=== PATIENT | male | born 1995 | race Caucasian/White ===

== ENCOUNTER 2017-04-12 11:48 | Inpatient (IN) | payer BC ==
--- NOTE | 2017-04-12 12:03 | CPEKG ---
Heart Rate: 154 RR Interval: 390 P-R Interval: 104 QRSD Interval: 84 QT Interval: 340 QTC Interval: 544 P [place]: 0 QRS [place]: 83 T Wave [place]: 41 EKG Severity - ABNORMAL ECG - EKG Impression: SINUS TACHYCARDIA EKG Impression: PROBABLE LEFT ATRIAL ABNORMALITY EKG Impression: LOW VOLTAGE IN FRONTAL LEADS EKG Impression: PROLONGED QT INTERVAL Electronically Signed By: Yung Hunt 12-Apr-2017 13:15:45
--- NOTE | 2017-04-12 13:01 | EDPHY ---
H & P Stated Complaint: ingestion of unknown substance Source: Patient Exam Limitations: No limitations - Personal History Current Tetanus/Diphtheria Vaccine: Unsure Current Tetanus Diphtheria and Acellular Pertussis (TDAP): Unsure - Medical/Surgical History Other PMH: unknown - Family History Significant Family History: No pertinent family hx - Social History Smoking Status: Never smoked Time Seen by Provider: 04/12/17 12:27 HPI/ROS: CHIEF COMPLAINT: Altered mental status HISTORY OF PRESENT ILLNESS: The patient was brought into the ED with acute confusion and altered mental status. Paramedics reported that they were suspicious the patient may have ingested hallucinogen. The patient was noted to have a normal blood glucose prior to arrival. In the ED, the patient is quite confused. The patient is quite confused and tangential. He is unable to provide much meaningful history. We were able to reach the patient's mother on the telephone. She reports he has a history of bipolar mood disorder and is likely been off his medications. She is uncertain of the last antipsychotic medication he had been on. She knows that he had been prescribed clonidine. REVIEW OF SYSTEMS: A comprehensive 10 point review of systems is otherwise negative aside from elements mentioned in the history of present illness. (Yung Hunt) - Physical Exam Exam: General Appearance: Alert, no distress, appears confused Eyes: Pupils equal and round no pallor or injection ENT, Mouth: Mucous membranes moist Respiratory: There are no retractions, lungs are clear to auscultation Cardiovascular: Regular rate and rhythm Gastrointestinal: Abdomen is soft and nontender, no masses, bowel sounds normal Neurological: A&O, normal motor function, normal sensory exam, normal cranial nerves Skin: Warm and dry, no rashes Musculoskeletal: Neck is supple nontender Extremities: symmetrical, full range of motion Psychiatric: Tangential, bizarre behavior, disoriented (Yung Hunt) Constitutional: Initial Vital Signs Temperature (C) 36.9 C 04/12/17 12:09 Heart Rate 150 H 04/12/17 12:09 Respiratory Rate 20 04/12/17 12:09 Blood Pressure 160/104 H 04/12/17 12:09 O2 Sat (%) 96 04/12/17 12:09 O2 Delivery Mode Room Air Allergies/Adverse Reactions: Penicillins Allergy (Verified 04/12/17 12:37) Home Medications: Medication Instructions Recorded Risperidone 1 tab PO DAILY PRN 04/12/17 traZODone [traZODONE 100MG (*)] 100 mg PO HS PRN 04/12/17 Medical Decision Making - Diagnostics EKG Interpretation: EKG: Complete interpretation has been separately recorded in the [facility] archive. Summary impression: Sinus tachycardia, rate 154 (Yung Hunt) ED Course/Re-evaluation: The patient presents to the ED with abnormal behavior. After reaching his mother we are able to understand that the patient has a history of bipolar mood disorder. The patient's urine toxicology is negative. The patient was given 5 mg of oral Zyprexa in the emergency department. The patient will be placed on an M1 psychiatric hold secondary to grave disability. He has been medically cleared for psychiatric evaluation. The patient will be turned over to Dr. Afshin Brown at shift change pending psychiatric evaluation. (Yung Hunt) Differential Diagnosis: Differential diagnosis considered includes drug intoxication, psychosis, bipolar mood disorder, ingestion, toxidrome (Yung Hunt) Other Provider: Care the patient is assumed from Dr. Hunt at 2:45 p.m.. History is patient has bipolar disorder and is currently manic and psychotic. Plan for psychiatric evaluation. He is on a hold. Vital signs have tachycardia noted but he had an EKG performed and it is sinus rhythm. Likely due to his agitation. White blood cell count also noted as elevated but patient does not have other evidence of acute bacterial infection. 175: patient examined. there is a long pause between asking question and reply. no meningeal signs. 1955: The patient will be transferred to [address] for inpatient psychiatric hospital bed not available at this facility, in stable condition; accepting physician is Dr. Blue. (Afshin Brown) - Data Points Laboratory Results: Laboratory Results 04/12/17 12:30 04/12/17 12:30 04/12/17 04/12/17 04/12/17 12:30 12:30 12:30 WBC 17.79 10^3/uL H 10^3/uL (3.80-9.50) RBC 6.31 10^6/uL 10^6/uL (4.40-6.38) Hgb 18.2 g/dL H g/dL (13.7-17.5) Hct 52.4 % H % (40.0-51.0) MCV 83.0 fL fL (81.5-99.8) MCH 28.8 pg pg (27.9-34.1) MCHC 34.7 g/dL g/dL (32.4-36.7) RDW 13.2 % % (11.5-15.2) Plt Count 324 10^3/uL 10^3/uL (150-400) MPV 10.9 fL fL (8.7-11.7) Neut % (Auto) 77.4 % H % (39.3-74.2) Lymph % (Auto) 14.4 % L % (15.0-45.0) Charles % (Auto) 6.5 % % (4.5-13.0) Eos % (Auto) 0.2 % L % (0.6-7.6) Baso % (Auto) 0.8 % % (0.3-1.7) Nucleat RBC Rel Count 0.0 % % (0.0-0.2) Absolute Neuts (auto) 13.79 10^3/uL H 10^3/uL (1.70-6.50) Absolute Lymphs (auto) 2.56 10^3/uL 10^3/uL (1.00-3.00) Absolute Monos (auto) 1.15 10^3/uL H 10^3/uL (0.30-0.80) Absolute Eos (auto) 0.03 10^3/uL 10^3/uL (0.03-0.40) Absolute Basos (auto) 0.14 10^3/uL H 10^3/uL (0.02-0.10) Absolute Nucleated RBC 0.00 10^3/uL 10^3/uL (0-0.01) Immature Gran % 0.7 % % (0.0-1.1) Immature Gran # 0.12 10^3/uL H 10^3/uL (0.00-0.10) Sodium 139 mEq/L mEq/L (135-145) Potassium 3.3 mEq/L L mEq/L (3.5-5.2) Chloride 95 mEq/L L mEq/L (97-110) Carbon Dioxide 16 mEq/l L mEq/l (22-31) Anion Gap 28 mEq/L H mEq/L (8-16) BUN 3 mg/dL L mg/dL (7-23) Creatinine 1.3 mg/dL mg/dL (0.7-1.3) Estimated GFR > 60 Glucose 199 mg/dL H mg/dL (70-100) Calcium 9.9 mg/dL mg/dL (8.5-10.4) Urine Opiates Screen NEGATIVE (NEGATIVE) Urine Barbiturates NEGATIVE (NEGATIVE) Ur Phencyclidine Scrn NEGATIVE (NEGATIVE) Ur Amphetamine Screen NEGATIVE (NEGATIVE) U Benzodiazepines Scrn NEGATIVE (NEGATIVE) Urine Cocaine Screen NEGATIVE (NEGATIVE) U Marijuana (THC) Screen NON-NEGATIVE H (NEGATIVE) Ethyl Alcohol < 10 mg/dL mg/dL (0-10) Medications Given: Discontinued Medications Sodium Chloride (Ns) 1,000 mls @ 0 mls/hr IV EDNOW ONE; Wide Open PRN Reason: Protocol Stop: 04/12/17 14:09 Last Admin: 04/12/17 14:24 Dose: 1,000 mls Sodium Chloride (Ns) 1,000 mls @ 0 mls/hr IV EDNOW ONE; Wide Open PRN Reason: Protocol Stop: 04/12/17 14:09 Last Admin: 04/12/17 14:25 Dose: 1,000 mls Olanzapine (Zyprexa Zydis) 5 mg PO EDNOW ONE Stop: 04/12/17 14:09 Last Admin: 04/12/17 14:24 Dose: 5 mg Departure - Departure Disposition: [facility] IP Clinical Impression: Bipolar disorder Qualifiers: Active/Remission status: currently active Current bipolar episode type: manic Current episode severity: severe Psychotic features: with psychotic features Qualified Code(s): F31.2 - Bipolar disorder, current episode manic severe with psychotic features Condition: Fair Instructions: Bipolar Disorder (ED) Referrals: NONE *PRIMARY CARE P,. [Primary Care Provider] - As per Instructions
[2017-04-12 13:05] LABS: PLATELET COUNT 324 10^3/uL (150-400)
[2017-04-12] MEDS ORDERED: OLANZapine DISINTEGR 5 MG TAB PO ONE (14:08)
[2017-04-12] MEDS ORDERED: NS 1,000 ML IV ONE ×2 (14:08)
[2017-04-12] MEDS ORDERED: MAGNESIUM HYDROXIDE 30 ML UDCUP PO PRN (21:55)
[2017-04-12] MEDS ORDERED: ACETAMINOPHEN 325 MG TAB PO PRN (21:55)
[2017-04-12] MEDS ORDERED: MAG HYDROX/AL HYDROX/SIMETH 30 ML UDCUP PO PRN (21:55)
[2017-04-12] MEDS ORDERED: NICOTINE POLACRILEX 2 MG GUM B PRN (21:55)
[2017-04-12] MEDS ORDERED: LORazepam 1 MG TAB PO PRN (21:56)
[2017-04-12] MEDS ORDERED: OLANZapine 5 MG TAB PO PRN (21:57)
[2017-04-12] MEDS: OLANZapine 10 MG TAB PO SCH (22:11)
--- NOTE | 2017-04-13 13:19 | BAPA ---
[f rep st] ADMISSION PSYCHIATRIC ASSESSMENT IDENTIFICATION: This is a 22-year-old single white male who lives with his girlfriend in an apartment in [place]. He is currently unemployed. CHIEF COMPLAINT: "I was walking in the park and I was walking in the stream." HISTORY OF PRESENT ILLNESS: Patient is a poor historian. Basically, he reports that he was walking through a park with minimal clothing, and was walking through a stream, and someone called the police or the paramedics, and he was taken to the emergency department. Per the emergency department report, the patient was tangential, disorganized, reported not sleeping, and having paranoia. The patient was given 5 mg of Zyprexa in the emergency room along with 2 L of IV fluids, and then transferred to the inpatient unit on an M1 hold. Patient reports that he has been diagnosed with bipolar disorder several times in the past. He reports past psychiatric hospitalizations for this condition. He reports prior to admission, he had not been taking any psychiatric medications. He reported erratic sleep, sometimes not sleeping at all, sometimes only sleeping a few hours, with racing thoughts. He reported brief mood swings, brief depression. He reports in the past month having brief thoughts about being , but denies suicidal thoughts or self-injurious behavior in the past month. He denies auditory hallucinations. He denies paranoia. He reports anxiety about "something bad is going to happen," along with irritability. He reports using cannabis up until about a week ago. He denies alcohol or other drug abuse. He denies any recent violent thoughts or violent behaviors. He denies any recent change in his physical health. The patient reports benefit from taking 10 mg of Zyprexa last night here on the inpatient unit. He reports he slept well, feels more calm, has reduced racing thoughts, and feels like he can think more clearly. PAST PSYCHIATRIC HISTORY: The patient denies any history of violence toward others or any arrests. He does report a psychiatric [facility]; per notes patient was diagnosed with Bipolar Disorder and Panic Disorder and prescribed Trileptal and PRN Klonopin. Prior to the 2014 hospitalization, he was having suicidal thoughts, and superficially cut on his left wrist and had thoughts of hanging himself. The patient also reports he was hospitalized at [facility] in [place] in [place] of 2017, diagnosed with Bipolar disorder with psychotic features and being prescribed Invega Sustenna injections. He reports at that time he was having manic symptoms, along with grandiose delusions that he was connected to the president and denominational figures. The patient denies any recurrent substance abuse, other than using daily cannabis in the past year. He reports he has not used cannabis in the past week. He also reports using LSD about 5 times in his early 20s, after which he was referred to [facility] residential substance use treatment program in [place]. Denies past addiction to alcohol, sedatives, or opioids. ALLERGIES: He has a listed allergy to penicillin. PAST MEDICAL HISTORY: He denies any chronic medical problems or any traumatic brain injuries or concussions or any seizures. He denies any surgery on his body or any recent change in his physical health. SOCIAL HISTORY: He reports he was raised by his parents. He reports his parents when he was 7, after which he was raised by his mother. He denies any physical or sexual abuse during his childhood. He graduated high school, did 1 semester of college. He is currently unemployed, lives with his girlfriend. He has never been , has no children. Never been in . His mother, in [place], is a support and supports him financially for his condominium FAMILY HISTORY: He reports his father had either schizophrenia or a mood disorder. He has 2 uncles with severe mental illness. He has a relative with thyroid disease. VITAL SIGNS: He weighs 104 kg. He is 175 cm tall. His BMI is 34. His vital signs this morning are 142/85, heart rate 90, respiratory rate 14, pulse ox 95% on room air, temperature afebrile. LABS: In the emergency room, he had a white blood cell count 7.7, hemoglobin 18.2, platelet count 324. Sodium 139, potassium 3.3, creatinine 1.3, glucose 199. His glucometer today was 75. The glucose of 199 was in the emergency room after he received IV fluids, possibly IV dextrose by paramedics. Calcium 9.9. TSH is pending. Hemoglobin A1c is pending. AST 33, ALT 27, triglycerides 178, HDL 38, LDL is 58. His urine drug screen is positive for cannabis. Alcohol level is negative. Other drugs of abuse were negative. MENTAL STATUS EXAMINATION: He is an alert, white male with glasses. He is ambulatory without focal weakness. His speech is regular rate and rhythm. His thoughts are briefly organized with minimal information. He describes his mood is "okay." His affect is restricted. He denies thoughts to hurt himself or others. He denies paranoia or hallucinations. His insight appears to be limited. His judgment appears to be questionable. He has a poverty of information with his speech. ASSESSMENT: Bipolar disorder type 1, most recent episode, most recent episode manic with mixed/psychotic features. Cannabis use disorder, severe. Rule out schizoaffective disorder. Rule out cannabis-related psychotic disorder. The overall assessment is the patient is currently on an M1 hold for grave disability after acting disorganized and paranoid and wandering through a stream and a park in a bizarre manner. The patient currently appears calm and appropriate, but has a poverty of information in thought content with limited insights. The patient was paranoid and disorganized in the ER. The patient was recently hospitalized at [place] in October 2016, and started on Invega Sustenna injections but did not follow through with outpatient mental health treatment. It is unclear if the patient has chronic psychotic symptoms or not. The patient does report sleeping well last night with Zyprexa 10 mg at night, and having reduction in racing thoughts and improved thought organization today. PLAN: 1. The patient is on M1 hold. Will follow up short-term certification for grave disability, as it appears the patient is unable to care for himself outside the hospital. If the patient is compliant with medication, calm, sleeping well, and having consistently-improved thought organization, will convert to voluntary status. 2. We will continue olanzapine 10 mg by mouth at bedtime. Discussed that this medication can be used for either bipolar disorder or schizophrenia. Discussed the risks of sedation, weight gain, elevated cholesterol, hyperlipidemia, metabolic syndrome, and tardive dyskinesia. 3. The patient had a low potassium in the emergency room. We will start potassium 20 mEq p.o. q.a.m. 4. The patient has chronic nicotine use disorder. We will start nicotine patch 14 mcg transdermal daily. 5. Discussed the dangers of cannabis, including paranoia, hallucinations, disorganization, psychosis. 6. The patient's reproductive healthcare assistant on the unit contacted the patient's mother regarding the patient's hospitalization. The patient did sign a release of information. [facility] We will ask her to evaluate the patient to clarify if this is near his baseline. 7. We will check vital signs twice a day, as the patient has borderline hypertension on the unit. The patient will get a baseline physical exam by the hospitalist later today. 8. Will consider rechecking an EKG prior to discharge, as he had tachycardia with a prolonged QTc interval in the ER. /[id number]/MODL MTDD
[2017-04-13] MEDS: NICOTINE 14 MG/24 HR PATCH TD SCH (13:26)
[2017-04-13] MEDS: POTASSIUM CL 20 MEQ TAB PO SCH (13:27)
[2017-04-13] MEDS ORDERED: FLU VACC QS 2017-18 (3YR+)/PF 0.5 ML SYR (FLUARIX QUAD) IM ONE ×3 (13:39→18:30)
[2017-04-13] MEDS ORDERED: PNEUMOCOCCAL 0.5ML VACCINE VIAL ONE (13:40)
[2017-04-13] MEDS ORDERED: PNEUMOCOCCAL 0.5ML VACCINE VIAL IM ONE ×2 (15:00→18:30)
--- NOTE | 2017-04-13 16:45 | CPEKG ---
Heart Rate: 71 RR Interval: 845 P-R Interval: 152 QRSD Interval: 88 QT Interval: 384 QTC Interval: 418 P [place]: 11 QRS [place]: 73 T Wave [place]: 33 EKG Severity - NORMAL ECG - EKG Impression: SINUS RHYTHM Electronically Signed By: Devon Montalvo 15-Apr-2017 08:00:28
[2017-04-13] MEDS: OLANZapine 10 MG TAB PO SCH (20:42)
--- NOTE | 2017-04-13 21:15 | BCON ---
[f rep st] BEHAVIORAL HEALTH CONSULTATION DATE OF CONSULTATION: 04/13/2017 REFERRING PHYSICIAN: William Blue MD REASON FOR REFERRAL: Medical clearance for inpatient behavioral health stay. HISTORY OF PRESENT ILLNESS: This patient was brought to the emergency department by paramedics yesterday. He had confusion and altered mental status. He was very tachycardic at the time. He was evaluated by the mental health team and admitted for further psychiatric care. He is currently without any acute complaints. 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 PAST SURGICAL HISTORY: He has had wisdom teeth extraction and labrum reconstruction. MEDICATIONS: He was on no medications prior to admission, but had previously been on risperidone. SOCIAL HISTORY: He lives alone. He has a girlfriend. He reports that he has not had a job. He is a tobacco smoker and a regular cannabis user. FAMILY HISTORY: He reports his mother has emphysema and his father had mental illness. REVIEW OF SYSTEMS: He denies pain, cough, dyspnea, chest pain, palpitations, nausea, vomiting, constipation, or diarrhea. He reports he had had excessive caffeine ingestion on the day that he was brought to the hospital and had had nausea and vomiting. Otherwise, a 10-point review of systems is negative. PHYSICAL EXAMINATION: VITAL SIGNS: Blood pressure is 142/85, heart rate 90, respiratory rate 14, and oxygen saturation 95% on room air. Temperature is 36.8 degrees centigrade. His weight is 104.3 kg for a body mass index of 34. GENERAL: This is an overweight male, cooperative, and in no acute distress HEENT: Extraocular movements are intact. Pupils are equal, round, and reactive to light. Mucous membranes are moist. Dentition is in good condition. NECK: Supple. HEART: There is a regular rate and rhythm with no murmurs, rubs, or gallops. LUNGS: Upper respiratory wheezes, audible in all lung jackson, especially on expiration , and are otherwise clear to auscultation bilaterally. ABDOMEN: Benign. EXTREMITIES: There is no cyanosis, clubbing, or edema. NEUROLOGIC: He is alert and oriented x3. Cranial nerves 2-12 are grossly intact. There is no focal weakness. Sensation is intact to light touch,and there is no tremor. LABORATORY STUDIES: From the emergency department: Hematology revealed a markedly elevated white blood cell count at 17.79. Additionally, he appeared to have hemoconcentration versus polycythemia with a hemoglobin slightly elevated at 18.2 and hematocrit slightly elevated at 52.4. Platelet count was normal. There was no left shift regarding leukocytosis. Serum chemistry revealed a low potassium at 3.3, a low chloride at 95, a low carbon dioxide at 28, a low BUN at 3. He had a low carbon dioxide at 16. He had an elevated anion gap at 28. Glucose was high at 199. Subsequently, glucose was 75. Hemoglobin A1c was 5.4. Liver functions were within normal limits. A lipid panel was done. He had elevated triglycerides at 178, but a low total cholesterol at 131; a low LDL at 58, and a low HDL at 38. TSH was normal at 0.67. Toxicology screen in the serum was negative for ethyl alcohol and in the urine was non-negative for marijuana, but otherwise negative for substances of abuse. ASSESSMENT AND RECOMMENDATIONS: 1. Bipolar disorder pending further evaluation and management per Psychiatry and the mental health team. 2. Tobacco dependence syndrome. Advised smoking cessation. 3. Obesity. Consider avoiding medications that could cause further weight gain ; however, his psychosocial stability is his first priority at present. 4. Hypokalemia and anion gap. Query whether these could be results of caffeine toxicity. Tachycardia would be consistent with caffeine toxicity. Hypothyroidism has been ruled out with normal TSH. Unclear etiology of the anion gap. If he had caffeine toxicity, rhabdomyolysis is a possibility. We will repeat his BMP in the morning along with a CK. 5. Leukocytosis. He had no obvious signs or symptoms of infection. However, while I am ordering blood draws, I will also order a repeat CBC to evaluate to whether the leukocytosis has continued or if it was part of an acute stress reaction. 6. Tachycardia and prolonged QT interval. I agree with Psychiatry's plan to repeat an EKG, to see if the QT interval appears prolonged when he has a normal heart rate, I have ordered a repeat EKG. 7. I see no medical contraindications to this patient's continued stay on the inpatient behavioral health unit or to any psychiatric medications or procedures. Thank you very much for including me in the care of this patient, and please do not hesitate to contact me or the hospitalist service should there be need for further medical evaluation. /[id number]/MODL MTDD
[2017-04-14] MEDS ORDERED: QUEtiapine FUMARATE 50 MG TAB PO SCH (09:15)
--- NOTE | 2017-04-14 09:22 | SOAPPROG ---
SOAP Progress Note Assessment/Plan: Assessment: Schizoaffective Disorder bipolar type Cannabis Use Disorder severe Needle/blood phobia Overweight, mild lipid elevation Patient appears anxious and mildly disorganized. Patient appears to have residual/negative symptoms of psychotic illness (impaired abstract thinking, apathy). Patient has a history of bipolar mood episodes and recurrent non-compliance with outpatient medication/treatment Plan: Short Term Certification Discussed risk of metabolic syndrome and tardive dyskinesia with antipsychotic medications Discontinue Zyprexa Start Seroquel 50mg PO QAM and 100mg PO QHS BMP, CK, CBC pending Ativan 1mg PO [id number] PRN anxiety or one hour prior to blood draw Monitor behavior, thought organization, mood stability Reviewed dangers of cannabis causing anxiety and psychosis Coordinate discharge planning with mother 04/14/17 09:26 Subjective: CC: "Feeling alright" Patient unable to explain why he is in the hospital. Later reports paranoia about 'everyone and everything' but unable to explain further. Reports prior to admit thinking about 'because a lot of regret' but denies specific suicidal plan or furtherance toward self harm prior to admission. Reports racing thoughts, yelling, agitation, insomnia prior to admission. Reports after inpatient in 2014 not taking Trileptal so unsure if that was a helpful medication. Reports in [place] he was initially started on Abilify then later Invega and Invega Sustenna injections; reports in past taking varying amounts of Risperdal without clear benefit. Reports he is unsure what his goals are or where he would go after discharge, unable to explain any long-term goals. Reports anxiety with a history of fainting with blood draws. Objective: Vital Signs Temp Pulse Resp BP Pulse Ox 36.6 C 112 H 14 137/88 H 96 04/14/17 06:00 04/14/17 06:00 04/14/17 06:00 04/14/17 06:00 04/14/17 06:00 Alert WM with glasses, overweight. Tapping foot with restlessness at times. Speech RRR. Thoughts tangential at times with occasional loose associations. Illogical at times with poverty of information. Denies AH. Endorses paranoia. Mood 'alright' affect anxious, odd. Denies suicidal thoughts or violent thoughts this AM. Insight limited/poor. Staff report patient anxious and irritable with blood draws, unable to obtain. Calm and cooperative but disorganized behavior and speech at times on unit. Slept overnight. Hospitalist rechecked EKG (WNL, HR 71, QTc 418msec); follow up BMP, CK, CBC ordered - Time Spent With Patient Time Spent With Patient: 30 minutes - Pending Discharge Pending Discharge Within 24 Hours: No Pending Discharge Within 48 Hours: No ICD10 Worksheet Patient Problems: Problems Problem Status Onset Bipolar disorder Acute Cannabis use disorder, severe, dependence Acute
[2017-04-14] MEDS: POTASSIUM CL 20 MEQ TAB PO SCH (09:48)
[2017-04-14] MEDS: NICOTINE 14 MG/24 HR PATCH TD SCH (09:48)
[2017-04-14 13:18] LABS: PLATELET COUNT 249 10^3/uL (150-400)
[2017-04-14 13:44] LABS: CREATINE KINASE 109 IU/L (0-224)
[2017-04-14] MEDS ORDERED: RISPERIDONE 1 MG ODT TAB SL PRN (14:04)
[2017-04-14] MEDS ORDERED: LORazepam 1 MG TAB PO PRN (14:04)
[2017-04-14] MEDS ORDERED: hydrOXYzine HCL 25 MG TAB PO PRN (14:04)
--- NOTE | 2017-04-14 14:50 | SOAPPROG ---
SOAP Progress Note Assessment/Plan: Assessment: Hypokalemia and anion gap have resolved. Creatinine kinase is normal. Discontinued potassium supplement. EKG reviewed, NSR, no prolonged QT. Prior finding was an artifact of tachycardia. 04/14/17 14:48 Subjective: Chart reviewed re lab and EKG results. Objective: Vital Signs Temp Pulse Resp BP Pulse Ox 36.6 C 112 H 14 137/88 H 96 04/14/17 06:00 04/14/17 06:00 04/14/17 06:00 04/14/17 06:00 04/14/17 06:00 Laboratory Results 04/14/17 11:15 04/14/17 11:15 ICD10 Worksheet Patient Problems: Problems Problem Status Onset Bipolar disorder Acute Cannabis use disorder, severe, dependence Acute Schizoaffective disorder Acute
[2017-04-14] MEDS: RISPERIDONE 2 MG ODT TAB SL SCH (20:14)
[2017-04-14] MEDS ORDERED: QUEtiapine FUMARATE 100 MG TAB PO SCH (21:00)
[2017-04-15] MEDS: NICOTINE 14 MG/24 HR PATCH TD SCH (08:34)
--- NOTE | 2017-04-15 10:40 | SOAPPROG ---
SOAP Progress Note Assessment/Plan: Assessment: Schizoaffective Disorder bipolar type Cannabis Use Disorder severe Needle/blood phobia Overweight, mild lipid elevation Borderline dehydration Patient admitted involuntarily for paranoia and disorganized behavior, including walking through [place] in freezing temperatures. Patient appears anxious and mildly disorganized and to have residual/negative symptoms of psychotic illness (impaired abstract thinking, apathy). Patient has a history of bipolar mood episodes and recurrent non-compliance with outpatient medication/treatment. Plan: Short Term Certification Continue Risperdal 2mg PO QHS Plan Risperdal Consta if tolerating Risperdal over next 2 days Monitor I/O, push PO fluids Discussed [facility]; coordinate discharge planning with mother in [place] Monitor behavior, thought organization, mood/anxiety Discussed low fat diet, exercise 04/15/17 10:43 Subjective: CC: "Just thinking about the past" Patient reports he is unsure if he will move to [place] or just go there for a few weeks and return to [place]. Unable to explain goals for the future. Denies paranoia or AH. Reports stable mood but having anxiety for unknown reasons. Reports difficulty keeping track of schedule on unit, unable to explain support system in [place] [facility]. Unable to explain non-compliance with medication and outpatient treatment between hospitalizations. Objective: Vital Signs Temp Pulse Resp BP Pulse Ox 36.6 C 108 H 15 138/89 H 93 04/15/17 08:00 04/15/17 08:00 04/15/17 08:00 04/15/17 08:00 04/15/17 08:00 Laboratory Results 04/14/17 11:15 04/14/17 11:15 04/14/17 04/15/17 04/16/17 05:59 05:59 05:59 Intake Total 750 Balance 750 Alert WM with glasses. Appears anxious and preoccupied at times. Speech RRR. Thoughts briefly organized, occasional loose association, with limited information. Denies SI or HI or AH or paranoia. Insight limited. Judgment questionable. Staff report patient cooperative with medication, slept 8 hours, attending groups, appearing preoccupied with disorganized statements at times. - Time Spent With Patient Time Spent With Patient: 30 minutes - Pending Discharge Pending Discharge Within 24 Hours: No Pending Discharge Within 48 Hours: No ICD10 Worksheet Patient Problems: Problems Problem Status Onset Bipolar disorder Acute Cannabis use disorder, severe, dependence Acute Schizoaffective disorder Acute
[2017-04-15] MEDS: RISPERIDONE 2 MG ODT TAB SL SCH (20:10)
[2017-04-16] MEDS: NICOTINE 14 MG/24 HR PATCH TD SCH (08:58)
[2017-04-16] MEDS ORDERED: GABAPENTIN 300 MG CAP PO PRN (09:05)
[2017-04-16] MEDS ORDERED: PROPRANOLOL HCL 10 MG TAB PO PRN (09:06)
--- NOTE | 2017-04-16 09:10 | SOAPPROG ---
SOAP Progress Note Assessment/Plan: Assessment: Schizoaffective Disorder bipolar type Cannabis Use Disorder severe Needle/blood phobia Overweight, mild lipid elevation Borderline dehydration Episodic tachycardia Patient admitted involuntarily for paranoia and disorganized behavior, including walking through a [place] in freezing temperatures. Patient appears anxious and mildly disorganized and to have residual/negative symptoms of psychotic illness (impaired abstract thinking, apathy). Patient has a history of bipolar mood episodes and recurrent non-compliance with outpatient medication/treatment. Plan: Short Term Certification Continue Risperdal 2mg PO QHS Patient unwilling to transition to Risperdal Consta Monitor I/O Discussed [facility] [place] and coordinating discharge planning with mother in [place] Monitor behavior, thought organization, mood/anxiety Propranolol 10mg PRN tachycardia Gabapentin 300mg QHS PRN insomnia 04/16/17 09:12 Subjective: CC: "I'm OK" Patient reports goal is to discharge with mother back to [place]. Reports he doesn't want to transition to Risperdal Consta but mother could monitor his medication compliance with PO Risperdal. Reports not wanting further medication changes and is tolerating Risperdal without side effects. Denies chest pain or shortness of breath. Denies stiffness or slowing. Reports disrupted sleep with restlessness. Reports good appetite. Reports sometimes having anxiety and paranoia but unable to explain in detail. Objective: Vital Signs Temp Pulse Resp BP Pulse Ox 36.8 C 86 14 134/81 H 96 04/16/17 06:39 04/16/17 07:21 04/16/17 06:39 04/16/17 06:39 04/16/17 06:39 Laboratory Results 04/14/17 11:15 04/14/17 11:15 04/15/17 04/16/17 04/17/17 05:59 05:59 05:59 Intake Total 750 1500 Balance 750 1500 Alert WM with glasses, appears well. No focal weakness or tremors. Speech soft few words. Mood 'OK' Affect restricted. Thoughts mostly organized with occasional loose association. Denies AH. Brief paranoia and anxiety, unable to explain in detail. Denies SI or HI. Insight limited. Judgment questionable. Staff report patient calm and cooperative on unit. Intermittent disorganized thinking and anxiety. Had brief tachycardia this AM. Eating and drinking well. - Time Spent With Patient Time Spent With Patient: 30 minutes - Pending Discharge Pending Discharge Within 24 Hours: No Pending Discharge Within 48 Hours: No ICD10 Worksheet Patient Problems: Problems Problem Status Onset Bipolar disorder Acute Cannabis use disorder, severe, dependence Acute Schizoaffective disorder Acute
--- NOTE | 2017-04-16 15:16 | PDMN ---
Medical Necessity Medical necessity: Called [facility] Ryanne [phone], voicemail referred to Lucy [phone]. Spoke to Lucy and gave my direct cellphone number for [id number] review. Spoke to staff on inpatient unit and requested they provide my number to insurance psychiatrist if he/she calls inpatient behavioral health unit.
[2017-04-16] MEDS: RISPERIDONE 2 MG ODT TAB SL SCH (18:44)
[2017-04-17 06:37] VITALS: TEMP 97.7
--- NOTE | 2017-04-17 08:15 | SOAPPROG ---
SOAP Progress Note Assessment/Plan: Assessment: Schizoaffective Disorder bipolar type Cannabis Use Disorder Needle/blood phobia Overweight, mild lipid elevation Borderline tachycardia, HTN Patient appears calm and appropriate with good judgment and appropriate discharge planning. Patient has been eating well and attending groups and appears calm and more organized than previous. Plan: Short Term Certification - will terminate when discharged and after completing safety plan Continue Risperdal 2mg PO QHS; patient unwilling to transition to Risperdal Consta Gabapentin 300mg QHS PRN insomnia Discussed [facility] clinics for psychiatry follow up Discussed dangers of cannabis Discussed follow up at [facility] for primary care, reassessment of borderline HTN, sleep apnea screening Coordinate discharge with mother Discussed low fat diet Discussed OTC Nicotine patches for nicotine cravings 04/17/17 08:18 Subjective: CC: "Better than before" Patient reports overall feeling well. Reports stable mood without severe sadness, hopelessness, or any thoughts of or suicide. Reports wanting to live for family and friends. Denies AH or paranoia on unit. Reports goal is to return to apartment and then move back to [place] with mother's assistance. Denies any physical complaints. Denies excessive sedation, stiffness, or tremor. Reports plan to abstain from cannabis after discharge. Objective: Vital Signs Temp Pulse Resp BP Pulse Ox 36.5 C 107 H 16 152/87 H 97 04/17/17 06:36 04/17/17 06:36 04/17/17 06:36 04/17/17 06:36 04/17/17 06:36 Laboratory Results 04/14/17 11:15 04/14/17 11:15 04/16/17 04/17/17 04/18/17 05:59 05:59 05:59 Intake Total 1500 1250 Balance 1500 1250 Alert WM with glasses. No tremors or weakness. Speech RRR. Mood 'better than before' Affect euthymic with brief smiling. Denies SI or HI or AH. Denies paranoia or severe anxiety. Thoughts organized with limited information. Insight fair/improved. Judgment appropriate. Staff report patient slept well overnight. Ate 100% breakfast, 75% lunch, 100% dinner yesterday with 1250 cc fluid intake. Staff report patient calm, appropriate on unit and attending groups. CC reports patient/mother unwilling to pay cost for residential care at [facility] but mother agreeable to return to [place] to provide support after discharge or assist patient in moving back to [place]. - Time Spent With Patient Time Spent With Patient: 35 minutes - Pending Discharge Pending Discharge Within 24 Hours: Yes Pending Discharge Date: 04/18/17 Pending Discharge Time: 11:00 ICD10 Worksheet Patient Problems: Problems Problem Status Onset Bipolar disorder Acute Cannabis use disorder, severe, dependence Acute Schizoaffective disorder Acute
[2017-04-17] MEDS: NICOTINE 14 MG/24 HR PATCH TD SCH (11:49)
[2017-04-17 15:58] VITALS: BP 132/72; PULSE 124; RESP 12; O2SAT 93
[2017-04-17] MEDS ORDERED: LORazepam 1 MG TAB PO PRN (16:08)
[2017-04-17] MEDS ORDERED: risperiDONE 2 MG TAB PO ONE (16:31)
[2017-04-17] MEDS ORDERED: GABAPENTIN 300 MG CAP PO ONE (16:33)
--- NOTE | 2017-04-17 18:07 | BDS ---
[f rep st] BEHAVIORAL HEALTH DISCHARGE SUMMARY IDENTIFICATION: This is a 22-year-old single white male who lives alone in an apartment. He is unemployed. His mother in [place] provides him with financial support. ADMITTING DIAGNOSES: 1. Bipolar disorder type 1, most recent episode manic with mixed and psychotic features. 2. Cannabis use disorder, severe. BRIEF PSYCHIATRIC HISTORY: The patient was hospitalized at [facility] in 2014 for depression, anxiety, and suicidal ideation and diagnosed with bipolar disorder and panic disorder, prescribed Trileptal and Klonopin. The patient was hospitalized at [facility] October 2016. There, he reportedly was diagnosed with bipolar disorder with psychotic features and prescribed Invega Sustenna injections. He reports since then not being compliant with outpatient mental health treatment. He has a history of abusing cannabis, sometimes daily, in the past year. He had a distant history in his early 20s of abusing LSD. He has a history of going to the [facility] in [place] several years ago. BRIEF MEDICAL HISTORY: He is overweight, but denies any chronic medical problems, traumatic brain injuries or concussions. He denies any surgery on his body or any recent changes to his physical health. ALLERGIES: He is allergic to penicillin. REASON FOR ADMISSION: The patient was taken to the emergency room by paramedics and the police. The patient apparently was acting disorganized and walking in a stream. He also had made paranoid statements, and was disorganized in the Emergency Department, and placed on an M1 hold for grave disability. On initial exam, he was an alert white male in no acute distress, wearing glasses. He is overweight. He had no focal weakness or tremors. He had fair eye contact. His speech was regular rate and rhythm with minimal speech. His thoughts were organized but occasionally made odd statements and occasional loose association. He reported paranoia, anxiety prior to admission, as well as on the first day of admission. He denied specific thoughts to hurt himself or others. He had a poverty of information with his speech. HOSPITAL COURSE: The patient was given a nicotine patch for nicotine use disorder. He was counseled about the dangers of cannabis causing anxiety, panic , and paranoia. The patient denied having alcohol use disorder. The patient had gotten olanzapine 10 mg in the Emergency Department, and then got another 10 mg the first night in the hospital. A subsequent blood test showed that patient had mildly elevated lipids. The patient was then switched to Seroquel to reduce the risk of hyperlipidemia. However, after getting collateral information from his mother and further information from the patient when he became more organized, it appears that the patient had benefit from Risperdal and Invega in the past, so the patient was switched to Risperdal 2 mg at bedtime. The patient repeatedly declined transition to Risperdal Consta, which was on the formulary of [facility]. The patient was given multiple opportunities to start Risperdal Consta as a maintenance treatment, as the patient has a history of recurrent noncompliance with oral medication when not in the hospital but patient declined to start this medication and insisted that he would continue taking oral Risperdal after discharge. The patient's mother and the patient were given information about [facility], which is a residential program with daily medication monitoring and support. The patient and the patient's mother declined referral to that program. The patient's mother reported that she would take the patient back to [place] for support monitoring, but would have to fly back to [place] after the patient's discharge. On the unit, the patient was calm, cooperative, eating well, sleeping well, able to attend groups, and did not appear to be in severe emotional distress. However, he at times appeared preoccupied and anxious, and appeared to occasionally have loose associations with his speech early in the course of the hospitalization. He also appeared to have negative symptoms of severe mental illness, including apathy, lack of motivation for future goals, as well as difficulty with abstract concepts. The patient and his mother were given information about schizoaffective disorder as a more likely diagnosis. On the unit, the patient reported improvement in his mood and his anxiety, improvements in his sleep. Reported feeling less anxious and more hopeful about the future. He was able to complete a safety plan and identify numerous supports, including his and uncle who live in [place], [place], as well as his mother and grandmother in [place], as well as several friends in [place]. The patient was prescribed gabapentin 300 mg at night for possible restlessness at night and disrupted sleep. Discharge was complicated by the fact that the patient and the patient's mother did not want the patient to go to [facility], which is a residential program here in [place] that could provide support and daily medication monitoring. Because of that, we attempted to have the patient stay in the hospital until the patient's mother was able to fly into [place] on April 19. However, on April 17, the patient's [facility] denied further inpatient stay. The risks and benefits of staying longer in the hospital versus transitioning home to his apartment were discussed with both the patient and his mother. Both agree that the patient would be able to return home if given transportation directly from the hospital to home and given a supply of medications. Therefore, the nursing staff on the unit will provide the patient a taxi voucher for direct transportation home. The patient will be given medications three nights of medication for Thursday night, Thursday night and Thursday night of April 17, and . The patient's discharge prescriptions will be written to be filled on April 20 with his mother present, as she will be his caregiver and monitoring his medication compliance. The patient reported his plan to return home to clean his apartment and to spend time with friends prior to returning to [place], and had a positive attitude regarding discharge. LABS: The patient's urine drug screen on April 12, 2017, was positive for cannabis. Negative for other drugs of abuse and negative for alcohol. During this hospitalization, the patient on April 14, 2017, had and a white blood cell count 8.7, hemoglobin 17.2, platelet count 249. Sodium 146, potassium 4.3 , creatinine 1.1, glucose 80, calcium 9.6, creatine kinase 109. On April 13, triglycerides 178, LDL 58, HDL 38, TSH 0.6. There are no labs pending. The patient was counseled that the labs indicated that he had borderline metabolic syndrome with elevated triglycerides. He was counseled to eat a low fat, low carbohydrate diet. He was counseled to use nicotine patches for nicotine cravings. CONSULTS: The patient was seen by hospitalist on April 13, 2017. PROCEDURES: None. In the emergency room, the patient had electrocardiogram that was abnormal. EKG was then repeated on the inpatient unit on April 13, 2017 that showed heart rate 71, QTc interval 418, normal sinus rhythm. CONDITION ON DISCHARGE: He is an alert white male in no acute distress. He is pleasant, cooperative. He has good eye contact. His speech is regular rate and rhythm with a soft voice. His thoughts are organized with minimal information. He denies any thoughts to hurt himself or others. He denies paranoia or hallucinations. He described his mood as "pretty good." His affect is briefly reactive with brief smiling. His insight is fair. His judgment is appropriate. DISCHARGE DIAGNOSES: 1. Schizoaffective disorder, bipolar type. 2. Cannabis use disorder, severe. DISCHARGE MEDICATIONS: 1. Risperdal 2 mg p.o. q.h.s. 2. Gabapentin 300 mg p.o. q.h.s. 3. Ativan 1 mg p.o. daily p.r.n. for panic attack. Dispense #4 tablets to be PRN for panic attacks before or during airplane travel. Of note, the patient will be receiving 3 nights worth of Risperdal and gabapentin when he is discharged. His prescriptions were written so that they could only be filled on Thursday, April 20, 2017 with his mother present. DISPOSITION: The patient is leaving the hospital in a taxi to return to his apartment. Followup and referrals. The patient was given information about [facility] for followup medical evaluation for borderline hypertension, and to get screening for sleep apnea. The patient was also given information about [facility] for psychiatric treatment if he returns to [place] in the future. However, the patient reports he is going to relocate to [place] with his mother. The care coordinators were able to get him information about a primary care clinic that he has previously gone to as well as a mental health clinic near his mothers home in [facility]. LEGAL STATUS: The patient was admitted on an M1 hold, and then placed on short- term certification. This will be terminated upon discharge as patient does not be involuntary treatment criteria at this time. ADDENDUM: Please see note of medical necessity dated 04/16/17. This physician was unable to reach a peer psychiatrist at [facility] on that date for review of medical necessity. Spoke to [facility] care managers Ryanne and Lucy [phone]. On 04/17/17 this insurance declined to authorize further inpatient coverage beyond 04/15/17. I faxed notes from to [facility] requesting an expedited appeal. /[id number]/MODL [id number]
== END 2017-04-17 20:40 | disposition home or self-care (01) | DRG 885 ==
LOC: EDBD 11:48 → BBEH 21:15
PROVIDERS: ADMIT Psychiatry & Neurology Psychiatry; ATTEND Psychiatry & Neurology Psychiatry
DX: F25.0 Schizoaffective disorder, bipolar type (principal); F12.90 Cannabis use, unspecified, uncomplicated; F17.200 Nicotine dependence, unspecified, uncomplicated; E66.9 Obesity, unspecified; E87.6 Hypokalemia; R00.0 Tachycardia, unspecified; Z23 Encounter for immunization
CPT/HCPCS: 80305; G0008; G0009; G0480